=== PATIENT | male | born 1985 | race African-American/Black ===

== ENCOUNTER 2019-06-24 11:12 | Inpatient (IN) ==
[2019-06-24] MEDS ORDERED: hydrOXYzine pamoate 25 MG CAPSULE PO PRN (12:54)
[2019-06-24] MEDS ORDERED: MOM Conc 10 ML UD.LIQ PO PRN (12:54)
[2019-06-24] MEDS ORDERED: Acetaminophen 325 MG TABLET PO PRN (12:54)
[2019-06-24] MEDS ORDERED: Mag Hydrox/Al Hydrox/Simeth 30 ML UDC PO PRN (12:54)
[2019-06-24] MEDS ORDERED: traZODone 50 MG TABLET PO PRN (12:54)
[2019-06-24] MEDS ORDERED: *HR* LORazepam 2 MG/ML VIAL IM PRN (12:54)
[2019-06-24] MEDS ORDERED: Haloperidol Lactate 5 MG/ML VIAL IM PRN (12:54)
[2019-06-24] MEDS ORDERED: *HR* LORazepam 1 MG TABLET PO PRN (12:54)
[2019-06-26 09:28] VITALS: BP 135/68
[2019-06-26] MEDS ORDERED: Lurasidone 20 MG TABLET PO SCH (21:00)
== END 2019-06-26 11:00 | disposition home or self-care (01) | DRG 753 ==
LOC: EMEROOARM 11:12 → 1ANU 12:50
PROVIDERS: ADMIT Psychiatry & Neurology Psychiatry; ATTEND Psychiatry & Neurology Psychiatry